=== PATIENT | female | born 1945 | race Caucasian/White ===

== ENCOUNTER 2022-04-14 11:40 | Emergency (ER) | payer OTHER, SELFPAY ==
[2022-04-14 11:47] VITALS: BP 172/60; PULSE 90; RESP 16; TEMP 37.2; O2SAT 98
--- NOTE | 2022-04-14 12:10 | ED.EAR ---
HPI - Ear Problem General Chief complaint: Ear Stated complaint: Trouble hearing out of both ears Time Seen by Provider: 04/14/22 12:05 Source: patient, RN notes reviewed and old records reviewed Mode of arrival: ambulatory Limitations: no limitations History of Present Illness HPI Narrative: 76 year old female presents to [facility] with complaints of decreased hearing, pressure sensation to her ears, and popping to her left ear which has been worse for the past 2-3 days. Patient reports that she has been having problems with her ears since December when she seen her PCP and has been using Tylenol sinus severe OTC medication and flonase nasal spray since that time. Patient reports no known fevers,reports some sinus pressure and clear drainage. MD Complaint: ear pain (popping left ear and pressure to bilateral ears) and decreased hearing Location: bilateral Duration: constant Discharge from ear: Reports no Treatment prior to arrival: other (sinus medication and nasal spray) Related Data Home Medications Medication Instructions Recorded Confirmed amlodipine 10 mg tablet 10 mg PO DAILY 04/14/22 04/14/22 hydrochlorothiazide 25 mg tablet 25 mg PO DAILY 04/14/22 04/14/22 insulin human U-100 NPH-regulr 18 unit subcut BID 04/14/22 04/14/22 70-30 mix 100 unit/mL subcutaneous susp (Humulin 70/30 U-100 Insulin) lisinopril 10 mg tablet 10 mg PO DAILY 04/14/22 04/14/22 simvastatin 20 mg tablet 20 mg PO DAILY 04/14/22 04/14/22 Allergies Allergy/AdvReac Type Severity Reaction Status Date / Time No Known Allergies Allergy Verified 04/14/22 12:11 Review of Systems Review of Systems: CONSTITUTIONAL: Denies malaise, chills, sweats, or fever. EYES: Denies visual changes, redness, or discharge. ENT: Reports rhinorrhea, congestion, sinus pain, bilateral otalgia, no sore throat. CARDIOVASCULAR: Denies chest pain, palpitations, or edema. RESPIRATORY: Reports no cough.? Denies dyspnea. GASTROINTESTINAL: Denies abdominal pain, nausea, vomiting, diarrhea SKIN: Denies rash or itching. MUSCULOSKELETAL: Denies myalgia. NEUROLOGIC: Denies headache. All systems reviewed & are unremarkable except as noted in HPI and below PMFSH Past Medical History Medical History (Updated 04/15/22 @ 09:13 by Leonor Toth NP) Diabetes Elevated cholesterol Hypertension Surgical History Surgical History (Updated 04/15/22 @ 09:19 by Leonor Toth NP) H/O eye surgery H/O: hysterectomy History of cholecystectomy History of tonsillectomy Social History Social History (Updated 04/15/22 @ 09:15 by Leonor Toth NP) Smoking status: Never smoker Alcohol intake: never Substance use: never Living arrangements: with family Additional living arrangements comments: cares for Occupation/Education: retired Gender identity (if verbalized by the patient): Female Comments At time of signature, agree with nursing past medical, surgical, social and family history. There is no relevant family history pertinent to the presenting complaint Exam Narrative: GENERAL: Well-appearing, well-nourished, and in no acute distress. HEAD: Normocephalic EYES: PERRLA, conjunctivae clear ENT: Nares clear, turbinates edematous and erythematous, clear discharge. Mucous membranes moist.Left TM red and bulging, Right TM pearly patrick with dull light reflex ear canals clear of drainage and redness; no tragal tenderness. Oropharynx erythematous without lesions. Tonsils not present throat without exudate, no drooling, no hoarseness, no trismus, uvula midline.post nasal drainage NECK: Supple. No lymphadenopathy CHEST: Clear to auscultation, breath sounds equal. No wheezing, rhonchi, rales, or stridor. No respiratory distress, speaks in full sentences. no cough, SAO2 98% on room air HEART: Regular rate and rhythm. No murmur heard. SKIN: Warm, dry, no rash. NEURO: Alert and oriented x3. PSYCH: Normal mood and affect
== END 2022-04-14 12:20 | disposition home or self-care (01) ==
PROVIDERS: Emergency Provider Registered Nurse
DX: H66.90 Otitis media, unspecified, unspecified ear (principal); E11.9 Type 2 diabetes mellitus without complications; I10 Essential (primary) hypertension; Z79.4 Long term (current) use of insulin
CPT/HCPCS: 99203; G0463